=== PATIENT | female | born 2000 | race Caucasian/White ===

== ENCOUNTER 2022-06-19 06:30 | Emergency (ER) | payer MEDICAID ==
[~2022-06-19] VITALS: Ht 157.5 cm; Wt 59.0 kg
[2022-06-19 07:29] LABS: HEMATOCRIT. 38.1 % (36.0-48.0); HEMOGLOBIN. 12.8 g/dL (12.0-16.0); MEAN CORPUSCULAR HEMOGLOBIN 30.4 pg (28.0-32.0); MEAN CORPUSCULAR VOLUME 90.9 fL (81.0-99.0); MEAN PLATELET VOLUME 11.7 fl (7.4-10.4); PLATELET 153 x1000/uL (130-400); RED BLOOD CELL COUNT 4.19 mill/uL (4.2-5.4); RED CELL DISTRIBUTION WIDTH 13.4 % (11.6-14.6)
[2022-06-19 07:30] LABS: CHLORIDE 105 mEq/L (98-107)
[2022-06-19] MEDS ORDERED: ONDANSETRON HCL 4MG TABLET PO ONE (08:15)
[2022-06-19] MEDS ORDERED: ACETAMINOPHEN 325MG TABLET PO ONE (08:15)
[2022-06-19 09:12] LABS: HCG SCREEN NEGATIVE
[2022-06-19] MEDS ORDERED: TOPUD PO (09:32)
[2022-06-19 09:40] VITALS: BP 120/72
[2022-06-19 10:07] LABS: PLATELET ESTIMATE NORMAL
[2022-06-19 12:24] LABS: CLARITY URINE CLOUDY (CLEAR); COLOR URINE YELLOW (YELLOW); KETONES URINE NEGATIVE (NEGATIVE); LEUKOCYTE ESTERASE URINE 2+ (NEGATIVE); NITRITE URINE NEGATIVE (NEGATIVE); OCCULT BLOOD URINE TRACE (NEGATIVE); PROTEIN URINE TRACE (NEGATIVE); SPECIFIC GRAVITY URINE 1.016 (1.005-1.030)
== END 2022-06-19 09:53 | disposition home or self-care (01) ==
LOC: ER 06:30
DX: R10.84 Generalized abdominal pain (principal); Z90.49 Acquired absence of other specified parts of digestive tract
CPT/HCPCS: 36415; 80053; 81003; 81025; 83690; 84703; 85025; 87077; 87086; 99283; Q0162